=== PATIENT | male | born 1955 | race Caucasian/White ===

== ENCOUNTER → 2016-12-19 | Outpatient (CLI) | payer MEDICAID ==
[~2016-12-19] MED LIST: CARV6.2551 PO; FURO40TA PO; LISI2.5T47 PO; WARF2.5T PO
[2016-12-19 13:30] LABS: Basophils # (auto) 0 uL; Basophils % (auto) 0.6 % (0.0-2.0); CONDITION Y; Eosinophils # (auto) 0.2 uL; Eosinophils % (auto) 1.9 % (0.0-7.0); Hematocrit 31.4 % (41.0-53.0); Hemoglobin 10.6 g/dL (13.5-17.5); Lymphocytes % (auto) 25.4 % (10.0-50.0); Mean Corpuscular Hemoglobin 29.8 pg (28.0-32.0); Mean Corpuscular Hgb Conc. 33.6 g/dL (32.0-36.0); Mean Corpuscular Volume 88.6 fL (80.0-100.0); Mean Platelet Volume 8.4 fL (7.4-10.4); Monocytes # (auto) 0.5 uL; Monocytes % (auto) 6.2 % (0.0-12.0); Neutrophils # (auto) 5.2 uL; Neutrophils % (auto) 65.9 % (37.0-80.0); Platelet Count (auto) 323 10^3/uL (140-450); Red Cell Distribution Width 16.1 % (11.6-16.0); White Blood Cell 7.9 10^3/uL (4.4-10.8)
[2016-12-19 13:51] LABS: Albumin 3.9 g/dL (3.4-5.0); BUN/Creatinine Ratio 27.3; Calcium 8.6 mg/dL (8.5-10.1); Potassium 4.5 mmol/L (3.5-5.1)
[2016-12-19 13:54] LABS: Bilirubin, Total 0.7 mg/dL (0.2-1.0); Total Protein 7.4 g/dL (6.4-8.2)
[2016-12-19 14:03] LABS: INR 1.44 (0.9-1.15)
[2016-12-19 14:12] LABS: Prothrombin Time 15.7 sec (9.37-12.3)
== END | disposition home or self-care (01) ==
LOC: LAB 13:13
PROVIDERS: ATTEND Internal Medicine
DX: I82.90 Acute embolism and thrombosis of unspecified vein (principal)
CPT/HCPCS: 36415; 80053; 85025; 85610

== ENCOUNTER → 2016-12-21 | Outpatient (CLI) | payer MEDICAID ==
[2016-12-21 13:16] LABS: Basophils # (auto) 0.1 uL; Basophils % (auto) 0.8 % (0.0-2.0); CONDITION Y; Eosinophils # (auto) 0.1 uL; Eosinophils % (auto) 1.4 % (0.0-7.0); Hematocrit 30.9 % (41.0-53.0); Hemoglobin 10.5 g/dL (13.5-17.5); Lymphocytes # (auto) 1.5 uL; Lymphocytes % (auto) 21.1 % (10.0-50.0); Mean Corpuscular Hemoglobin 29.8 pg (28.0-32.0); Mean Corpuscular Hgb Conc. 34.1 g/dL (32.0-36.0); Mean Corpuscular Volume 87.4 fL (80.0-100.0); Mean Platelet Volume 7.9 fL (7.4-10.4); Monocytes # (auto) 0.5 uL; Monocytes % (auto) 6.5 % (0.0-12.0); Neutrophils % (auto) 70.2 % (37.0-80.0); Platelet Count (auto) 368 10^3/uL (140-450); Red Cell Distribution Width 16.2 % (11.6-16.0); White Blood Cell 7.1 10^3/uL (4.4-10.8)
[2016-12-21 13:28] LABS: INR 1.24 (0.9-1.15)
[2016-12-21 13:30] LABS: Prothrombin Time 13.6 sec (9.37-12.3)
[2016-12-21 13:44] LABS: BUN/Creatinine Ratio 20.2; Calcium 8.5 mg/dL (8.5-10.1); Potassium 4.5 mmol/L (3.5-5.1)
[2016-12-21 13:47] LABS: Bilirubin, Total 0.6 mg/dL (0.2-1.0); Total Protein 7.2 g/dL (6.4-8.2)
[2016-12-21 14:04] LABS: B-Type Natriuretic Peptide 52.47 pg/mL (0-100)
[2016-12-21 14:24] LABS: Temperature: 22.7 C (20.0-25.0)
== END | disposition home or self-care (01) ==
LOC: LAB 13:01
PROVIDERS: ATTEND Internal Medicine
DX: I82.409 Acute embolism and thrombosis of unspecified deep veins of unspecified lower extremity (principal); D64.9 Anemia, unspecified; I50.9 Heart failure, unspecified
CPT/HCPCS: 36415; 80053; 83880; 85025; 85610

== ENCOUNTER 2017-12-22 11:18 | Inpatient (IN) | payer MEDICAID ==
[~2017-12-22] VITALS: Ht 180.3 cm; Wt 153.1 kg
[2017-12-22 12:19] LABS: Basophils # (auto) 0.1 uL; Eosinophils # (auto) 0.3 uL; Hemoglobin 13.8 g/dL (13.5-17.5); Lymphocytes # (auto) 1.1 uL; Monocytes # (auto) 0.6 uL; Neutrophils # (auto) 5.3 uL; Platelet Count (auto) 231 10^3/uL (140-450)
[2017-12-22 12:20] LABS: Basophils % (auto) 1.2 % (0.0-2.0); Eosinophils % (auto) 4.2 % (0.0-7.0); Hematocrit 42.1 % (41.0-53.0); Lymphocytes % (auto) 14.7 % (10.0-50.0); Mean Corpuscular Hemoglobin 25.3 pg (28.0-32.0); Mean Corpuscular Hgb Conc. 32.8 g/dL (32.0-36.0); Monocytes % (auto) 8.4 % (0.0-12.0); Neutrophils % (auto) 71.5 % (37.0-80.0); Red Blood Cells 5.47 10^6/uL (4.5-5.90); Red Cell Distribution Width 18.1 % (11.8-14.3); White Blood Cell 7.4 10^3/uL (4.4-10.8)
[2017-12-22 12:37] LABS: Alanine Aminotransferase 21 U/L (16-61); Albumin 3.4 g/dL (3.4-5.0); Alkaline Phosphatase 76 U/L (45-117); Anion Gap 9 (5-15); Aspartate Aminotransferase 14 U/L (15-37); BUN/Creatinine Ratio 18.3; Bilirubin, Total 0.5 mg/dL (0.2-1.0); Blood Urea Nitrogen 19 mg/dL (7-18); Calcium 8.7 mg/dL (8.5-10.1); Carbon Dioxide 25 mmol/L (21-32); Chloride 106 mmol/L (98-107); GFR African American 94 mL/min; GFR Non-African American 77 mL/min; Glucose 111 mg/dL (74-106); Potassium 4.3 mmol/L (3.5-5.1); Sodium 140 mmol/L (136-145); Total Protein 7.9 g/dL (6.4-8.2)
[2017-12-22 17:11] LABS: INR 1.02 (0.9-1.15); Partial Thromboplastin Time 27.8 sec (23.78-33.04); Prothrombin Time 10.9 sec (9.27-12.13)
[2017-12-22 17:16] LABS: Magnesium 2.3 mg/dL (1.6-2.6)
[2017-12-22 17:51] LABS: Urine Bacteria NONE SEEN /hpf (None Seen); Urine Blood Negative /uL (Negative); Urine Mucus FEW (None Seen); Urine Specific Gravity 1.021 (1.001-1.035); Urine WBC 9 /hpf (0 - 3)
[2017-12-22] MEDS ORDERED: ENOXAPARIN SOD 150 MG/1 ML SYRINGE SC ONE (18:15)
[2017-12-22] MEDS ORDERED: NITROGLYCERIN 0.4 MG SL TAB SL PRN (19:45)
[2017-12-22] MEDS ORDERED: TEMAZEPAM 15 MG CAP PO PRN (19:45)
[2017-12-22] MEDS ORDERED: ALBUTEROL SULF 2.5 MG/0.5ML(0.5%) NEB SOLN NEB PRN (19:45)
[2017-12-22] MEDS ORDERED: LACTULOSE 20Gm/30ML SOLN PO PRN (19:45)
[2017-12-22] MEDS ORDERED: PROMETHAZINE HCL 25 MG/ML 1ML IV PRN (19:45)
[2017-12-22] MEDS ORDERED: MORPHINE SULF INJ 2 MG/ML SYRINGE 1ML IV PRN ×2 (19:45)
[2017-12-22 20:00] VITALS: BP 144/72
[2017-12-22] MEDS ORDERED: LEVOTHYROXINE SODIUM 25 MCG TAB PO SCH (21:00)
[2017-12-22] MEDS ORDERED: LEVOFLOXACIN 500MG 100 ML IV SCH (21:00)
[2017-12-22 22:00] VITALS: BP 137/86
[2017-12-22] MEDS: CLINDAMYCIN 600MG IV 50 ML IV SCH (23:15)
[2017-12-22] MEDS: ENOXAPARIN SOD 120 MG/0.8 ML SYRINGE SC SCH (23:15)
[2017-12-22] MEDS: LORazepam 0.5 MG TAB PO PRN (23:48)
[2017-12-23] VITALS (7 sets, daily range): BP systolic 127–159; BP diastolic 73–95
[2017-12-23 06:18] LABS: Basophils # (auto) 0.1 uL; Eosinophils # (auto) 0.4 uL; Hemoglobin 12.7 g/dL (13.5-17.5); Lymphocytes # (auto) 1.3 uL; Platelet Count (auto) 202 10^3/uL (140-450); Red Cell Distribution Width 17.8 % (11.8-14.3)
[2017-12-23 06:25] LABS: Basophils % (auto) 0.9 % (0.0-2.0); Eosinophils % (auto) 6.5 % (0.0-7.0); Hematocrit 39.3 % (41.0-53.0); Lymphocytes % (auto) 18.9 % (10.0-50.0); Mean Corpuscular Hgb Conc. 32.2 g/dL (32.0-36.0); Mean Corpuscular Volume 77.4 fL (80.0-100.0); Monocytes # (auto) 0.8 uL; Monocytes % (auto) 11.6 % (0.0-12.0); Neutrophils # (auto) 4.2 uL; Neutrophils % (auto) 62.1 % (37.0-80.0); Nucleated Red Blood Cells % 0.2 %; Red Blood Cells 5.08 10^6/uL (4.5-5.90); White Blood Cell 6.7 10^3/uL (4.4-10.8)
[2017-12-23] MEDS: CLINDAMYCIN 600MG IV 50 ML IV SCH ×3 (06:32→21:50)
[2017-12-23] MEDS: LEVOTHYROXINE SODIUM 25 MCG TAB PO SCH (06:33)
[2017-12-23 06:36] LABS: Albumin 2.9 g/dL (3.4-5.0); BUN/Creatinine Ratio 21.5; Bilirubin, Total 0.6 mg/dL (0.2-1.0); Calcium 8.3 mg/dL (8.5-10.1); Potassium 4.1 mmol/L (3.5-5.1)
[2017-12-23] MEDS: ENOXAPARIN SOD 120 MG/0.8 ML SYRINGE SC SCH ×2 (10:27→21:50)
[2017-12-23] MEDS: LORazepam 0.5 MG TAB PO PRN ×2 (15:13→23:25)
[2017-12-23] MEDS: LEVOFLOXACIN 500MG 100 ML IV SCH (21:25)
[2017-12-23] MEDS: traMADol HCL 50 MG TAB PO PRN (21:50)
[2017-12-24] VITALS (7 sets, daily range): BP systolic 102–150; BP diastolic 70–95
[2017-12-24] MEDS: CLINDAMYCIN 600MG IV 50 ML IV SCH ×3 (06:50→22:01)
[2017-12-24] MEDS: LEVOTHYROXINE SODIUM 25 MCG TAB PO SCH (06:51)
[2017-12-24 08:51] LABS: Free T4 (Free Thyroxine) 0.83 ng/dL (0.89-1.76)
[2017-12-24 08:52] LABS: Free T3 2.94 pg/mL (2.3-4.2)
[2017-12-24] MEDS: ENOXAPARIN SOD 120 MG/0.8 ML SYRINGE SC SCH ×2 (10:40→22:01)
[2017-12-24 12:13] LABS: BUN/Creatinine Ratio 21.5; Calcium 8.5 mg/dL (8.5-10.1); Potassium 4.4 mmol/L (3.5-5.1)
[2017-12-24 12:14] LABS: Basophils # (auto) 0.1 uL; Eosinophils # (auto) 0.5 uL; Hemoglobin 12.8 g/dL (13.5-17.5); Mean Corpuscular Hgb Conc. 32.5 g/dL (32.0-36.0); Monocytes # (auto) 0.7 uL; Neutrophils # (auto) 3.2 uL; Nucleated Red Blood Cells % 0.1 %; Red Blood Cells 5.09 10^6/uL (4.5-5.90); White Blood Cell 5.4 10^3/uL (4.4-10.8)
[2017-12-24 12:17] LABS: Basophils % (auto) 0.9 % (0.0-2.0); Eosinophils % (auto) 8.7 % (0.0-7.0); Hematocrit 39.3 % (41.0-53.0); Lymphocytes % (auto) 18.7 % (10.0-50.0); Mean Corpuscular Hemoglobin 25.2 pg (28.0-32.0); Mean Corpuscular Volume 77.3 fL (80.0-100.0); Monocytes % (auto) 12.6 % (0.0-12.0); Neutrophils % (auto) 59.1 % (37.0-80.0); Platelet Count (auto) 203 10^3/uL (140-450); Red Cell Distribution Width 17.8 % (11.8-14.3)
[2017-12-24] MEDS: LORazepam 0.5 MG TAB PO PRN (13:50)
[2017-12-24] MEDS: LEVOFLOXACIN 500MG 100 ML IV SCH (20:41)
[2017-12-25] MEDS: traMADol HCL 50 MG TAB PO PRN (02:13)
[2017-12-25] MEDS: LORazepam 0.5 MG TAB PO PRN (02:13)
[2017-12-25 05:29] VITALS: BP 121/70
[2017-12-25] MEDS: CLINDAMYCIN 600MG IV 50 ML IV SCH ×3 (06:16→22:24)
[2017-12-25] MEDS: LEVOTHYROXINE SODIUM 25 MCG TAB PO SCH (06:31)
[2017-12-25 07:22] LABS: Basophils # (auto) 0.1 uL; Basophils % (auto) 0.9 % (0.0-2.0); Eosinophils # (auto) 0.5 uL; Eosinophils % (auto) 8.9 % (0.0-7.0); Hematocrit 39.8 % (41.0-53.0); Lymphocytes # (auto) 1.4 uL; Mean Corpuscular Hemoglobin 25.4 pg (28.0-32.0); Mean Corpuscular Hgb Conc. 32.7 g/dL (32.0-36.0); Mean Corpuscular Volume 77.7 fL (80.0-100.0); Monocytes # (auto) 0.7 uL; Neutrophils # (auto) 3.4 uL; Neutrophils % (auto) 55.2 % (37.0-80.0); Nucleated Red Blood Cells % 0.1 %; Platelet Count (auto) 210 10^3/uL (140-450); Red Blood Cells 5.12 10^6/uL (4.5-5.90); Red Cell Distribution Width 17.9 % (11.8-14.3); White Blood Cell 6.1 10^3/uL (4.4-10.8)
[2017-12-25 07:35] LABS: BUN/Creatinine Ratio 22.7; Calcium 8.6 mg/dL (8.5-10.1); Potassium 4.4 mmol/L (3.5-5.1)
[2017-12-25 08:00] VITALS: BP 121/70
[2017-12-25 09:00] VITALS: BP 138/80
[2017-12-25] MEDS: ENOXAPARIN SOD 120 MG/0.8 ML SYRINGE SC SCH ×2 (10:04→22:25)
[2017-12-25 13:00] VITALS: BP 146/92
[2017-12-25 16:53] VITALS: BP 121/60
[2017-12-25 20:00] VITALS: BP 118/53
[2017-12-25] MEDS: LEVOFLOXACIN 500MG 100 ML IV SCH (20:55)
[2017-12-26] VITALS (8 sets, daily range): BP systolic 114–151; BP diastolic 76–87
[2017-12-26] MEDS: CLINDAMYCIN 600MG IV 50 ML IV SCH (05:33)
[2017-12-26] MEDS: ACETAMINOPHEN 500 MG TAB PO PRN (05:35)
[2017-12-26] MEDS: LEVOTHYROXINE SODIUM 25 MCG TAB PO SCH (07:06)
[2017-12-26] MEDS: LORazepam 0.5 MG TAB PO PRN ×2 (07:07→21:13)
[2017-12-26 07:11] LABS: Eosinophils # (auto) 0.5 uL; Hemoglobin 13.3 g/dL (13.5-17.5); Monocytes # (auto) 0.8 uL; Neutrophils # (auto) 3.5 uL; Nucleated Red Blood Cells % 0.2 %; White Blood Cell 6.3 10^3/uL (4.4-10.8)
[2017-12-26 07:16] LABS: Basophils # (auto) 0.1 uL; Eosinophils % (auto) 8.1 % (0.0-7.0); Hematocrit 41.2 % (41.0-53.0); Lymphocytes # (auto) 1.5 uL; Lymphocytes % (auto) 23.3 % (10.0-50.0); Mean Corpuscular Hemoglobin 24.9 pg (28.0-32.0); Mean Corpuscular Hgb Conc. 32.2 g/dL (32.0-36.0); Mean Corpuscular Volume 77.4 fL (80.0-100.0); Monocytes % (auto) 12.5 % (0.0-12.0); Neutrophils % (auto) 55.1 % (37.0-80.0); Platelet Count (auto) 227 10^3/uL (140-450); Red Blood Cells 5.33 10^6/uL (4.5-5.90)
[2017-12-26 07:42] LABS: BUN/Creatinine Ratio 21.7; Bilirubin, Total 0.4 mg/dL (0.2-1.0); Calcium 8.6 mg/dL (8.5-10.1); Potassium 4.4 mmol/L (3.5-5.1); Total Protein 7.3 g/dL (6.4-8.2)
[2017-12-26] MEDS: ENOXAPARIN SOD 120 MG/0.8 ML SYRINGE SC SCH ×2 (08:33→21:12)
[2017-12-26] MEDS ORDERED: WARFARIN SODIUM 2.5 MG TAB PO ONE (17:00)
[2017-12-27 04:56] VITALS: BP 143/83
[2017-12-27] MEDS: LEVOTHYROXINE SODIUM 25 MCG TAB PO SCH (06:27)
[2017-12-27] MEDS: LORazepam 0.5 MG TAB PO PRN ×2 (06:28→22:53)
[2017-12-27 09:00] VITALS: BP 148/84
[2017-12-27] MEDS: ENOXAPARIN SOD 120 MG/0.8 ML SYRINGE SC SCH ×2 (09:16→22:53)
[2017-12-27 11:09] LABS: Partial Thromboplastin Time 29.6 sec (23.78-33.04); Prothrombin Time 10.7 sec (9.27-12.13)
[2017-12-27 12:42] VITALS: BP 120/75
[2017-12-27] MEDS ORDERED: WARFARIN SODIUM 2.5 MG TAB PO ONE (17:00)
[2017-12-27 17:22] VITALS: BP 137/83
[2017-12-27 20:00] VITALS: BP 109/59
[2017-12-27 22:00] VITALS: BP 109/59
[2017-12-28] MEDS: ACETAMINOPHEN 500 MG TAB PO PRN (03:41)
[2017-12-28] MEDS: LEVOTHYROXINE SODIUM 25 MCG TAB PO SCH (06:19)
[2017-12-28] MEDS: LORazepam 0.5 MG TAB PO PRN ×2 (06:37→18:53)
[2017-12-28 06:40] LABS: Basophils # (auto) 0.1 uL; Eosinophils # (auto) 0.5 uL; Eosinophils % (auto) 7.9 % (0.0-7.0); Hemoglobin 13.8 g/dL (13.5-17.5); Monocytes # (auto) 0.8 uL; Neutrophils # (auto) 3.5 uL; White Blood Cell 6.2 10^3/uL (4.4-10.8)
[2017-12-28 06:42] LABS: Basophils % (auto) 1.1 % (0.0-2.0); Hematocrit 43.2 % (41.0-53.0); Lymphocytes # (auto) 1.4 uL; Lymphocytes % (auto) 22.7 % (10.0-50.0); Mean Corpuscular Hemoglobin 24.7 pg (28.0-32.0); Mean Corpuscular Hgb Conc. 31.9 g/dL (32.0-36.0); Mean Corpuscular Volume 77.3 fL (80.0-100.0); Monocytes % (auto) 12.4 % (0.0-12.0); Neutrophils % (auto) 55.9 % (37.0-80.0); Nucleated Red Blood Cells % 0.1 %; Platelet Count (auto) 221 10^3/uL (140-450); Red Blood Cells 5.58 10^6/uL (4.5-5.90); Red Cell Distribution Width 18.2 % (11.8-14.3)
[2017-12-28 06:49] LABS: INR 1.14 (0.9-1.15); Partial Thromboplastin Time 33.8 sec (23.78-33.04); Prothrombin Time 12.1 sec (9.27-12.13)
[2017-12-28 09:00] VITALS: BP 149/96
[2017-12-28] MEDS: ENOXAPARIN SOD 120 MG/0.8 ML SYRINGE SC SCH ×2 (10:58→22:18)
[2017-12-28 13:00] VITALS: BP 138/99
[2017-12-28 17:00] VITALS: BP 140/94
[2017-12-28] MEDS ORDERED: WARFARIN SODIUM 2.5 MG TAB PO ONE (17:00)
[2017-12-28 22:00] VITALS: BP 112/55
[2017-12-29] VITALS (7 sets, daily range): BP systolic 107–157; BP diastolic 62–104
[2017-12-29] MEDS: LEVOTHYROXINE SODIUM 25 MCG TAB PO SCH ×2 (06:51→07:03)
[2017-12-29] MEDS: ENOXAPARIN SOD 120 MG/0.8 ML SYRINGE SC SCH ×2 (09:38→21:08)
[2017-12-29 10:12] LABS: INR 1.76 (0.9-1.15); Partial Thromboplastin Time 35.9 sec (23.78-33.04); Prothrombin Time 18.2 sec (9.27-12.13)
[2017-12-29] MEDS: CARVEDILOL 3.125 MG TAB PO SCH ×2 (14:34→21:10)
[2017-12-29] MEDS: ACETAMINOPHEN 500 MG TAB PO PRN (17:00)
[2017-12-29] MEDS ORDERED: WARFARIN SODIUM 2.5 MG TAB PO ONE (17:00)
[2017-12-29] MEDS: LORazepam 0.5 MG TAB PO PRN (21:10)
[2017-12-30] MEDS: traMADol HCL 50 MG TAB PO PRN (01:44)
[2017-12-30 05:00] VITALS: BP 126/77
[2017-12-30 06:16] LABS: Basophils # (auto) 0.1 uL; Eosinophils # (auto) 0.1 uL; Eosinophils % (auto) 1.2 % (0.0-7.0); Lymphocytes # (auto) 0.7 uL; Mean Corpuscular Hemoglobin 24.5 pg (28.0-32.0); Monocytes # (auto) 0.6 uL; Monocytes % (auto) 9.9 % (0.0-12.0); Nucleated Red Blood Cells % 0.1 %
[2017-12-30 06:18] LABS: Basophils % (auto) 1.1 % (0.0-2.0); Hematocrit 42.6 % (41.0-53.0); Hemoglobin 13.6 g/dL (13.5-17.5); Lymphocytes % (auto) 12.8 % (10.0-50.0); Mean Corpuscular Hgb Conc. 31.8 g/dL (32.0-36.0); Mean Corpuscular Volume 77.1 fL (80.0-100.0); Neutrophils # (auto) 4.2 uL; Platelet Count (auto) 205 10^3/uL (140-450); Red Blood Cells 5.53 10^6/uL (4.5-5.90); Red Cell Distribution Width 17.5 % (11.8-14.3); White Blood Cell 5.6 10^3/uL (4.4-10.8)
[2017-12-30] MEDS: LEVOTHYROXINE SODIUM 25 MCG TAB PO SCH (06:37)
[2017-12-30 06:51] LABS: INR 2.25 (0.9-1.15); Partial Thromboplastin Time 42.2 sec (23.78-33.04)
[2017-12-30 08:00] VITALS: BP 123/85
[2017-12-30] MEDS ORDERED: LORazepam 0.5 MG TAB PO PRN (08:30)
[2017-12-30] MEDS ORDERED: TEMAZEPAM 15 MG CAP PO PRN (08:30)
[2017-12-30] MEDS ORDERED: traMADol HCL 50 MG TAB PO PRN (08:30)
[2017-12-30 09:00] VITALS: BP 123/85
[2017-12-30] MEDS: CARVEDILOL 3.125 MG TAB PO SCH ×2 (09:23→22:00)
[2017-12-30] MEDS ORDERED: ASPirin 81 mg TAB PO ONE (10:15)
[2017-12-30 13:00] VITALS: BP 148/90
[2017-12-30 17:00] VITALS: BP 142/93
[2017-12-30] MEDS ORDERED: WARFARIN SODIUM 2.5 MG TAB PO ONE (17:00)
[2017-12-30 21:47] VITALS: BP 133/74
[2017-12-31 05:00] VITALS: BP_SYST 104; BP_SYST 157; BP_DIAS 77; BP_DIAS 81
[2017-12-31] MEDS: LEVOTHYROXINE SODIUM 25 MCG TAB PO SCH (06:10)
[2017-12-31 07:13] LABS: White Blood Cell 4.2 10^3/uL (4.4-10.8)
[2017-12-31 07:15] LABS: Hematocrit 41.6 % (41.0-53.0); Hemoglobin 13.2 g/dL (13.5-17.5); Mean Corpuscular Hemoglobin 24.6 pg (28.0-32.0); Mean Corpuscular Hgb Conc. 31.8 g/dL (32.0-36.0); Mean Corpuscular Volume 77.4 fL (80.0-100.0); Platelet Count (auto) 186 10^3/uL (140-450); Red Blood Cells 5.38 10^6/uL (4.5-5.90); Red Cell Distribution Width 17.9 % (11.8-14.3)
[2017-12-31 07:20] LABS: INR 2.39 (0.9-1.15); Partial Thromboplastin Time 41.3 sec (23.78-33.04); Prothrombin Time 24.3 sec (9.27-12.13)
[2017-12-31 07:30] LABS: BUN/Creatinine Ratio 23.7; Bilirubin, Total 0.2 mg/dL (0.2-1.0); Calcium 8.2 mg/dL (8.5-10.1); Magnesium 2.7 mg/dL (1.6-2.6); Potassium 4.5 mmol/L (3.5-5.1); Total Protein 7.1 g/dL (6.4-8.2)
[2017-12-31 07:37] LABS: Basophils % (manual) 0 (0.0-2.0); Blast Cells 0; Metamyelocytes % 0; Myelocytes % 0; Promyelocytes % 0; Reactive Lymphocytes 0
[2017-12-31 07:40] LABS: Band Neutrophils % (manual) 3; Eosinophils % (manual) 7 (0-7); Lymphocytes % (manual) 25 (10.0-50.0); Monocytes % (manual) 15 (0-12)
[2017-12-31 08:28] VITALS: BP_SYST 130; BP_SYST 169; BP_DIAS 80; BP_DIAS 86
[2017-12-31] MEDS ORDERED: ASPirin 81 mg TAB PO SCH (10:00)
[2017-12-31] MEDS: CARVEDILOL 3.125 MG TAB PO SCH (10:21)
[2017-12-31] MEDS ORDERED: LEV50T PO (10:36)
[2017-12-31] MEDS ORDERED: CAR3125T PO (10:36)
[2017-12-31] MEDS ORDERED: WARF2.5T PO (10:36)
[2017-12-31] MEDS ORDERED: FURO40TA PO (10:41)
[2017-12-31] MEDS ORDERED: LISI2.5T47 PO (10:41)
[2017-12-31] MEDS ORDERED: ATOR10TA PO (10:46)
[2017-12-31] MEDS ORDERED: DOXE10CA PO (13:15)
[2017-12-31 13:41] VITALS: BP 116/69
[2017-12-31] MEDS ORDERED: WARFARIN SODIUM 2.5 MG TAB PO ONE (17:00)
== END 2017-12-31 15:30 | disposition home or self-care (01) | DRG 299 ==
LOC: ER 11:18 → TELE 11:19 → TELE-EAST 21:34 → EAST 12-28 01:43
PROVIDERS: ADMIT Internal Medicine; ATTEND Internal Medicine
DX: I82.412 Acute embolism and thrombosis of left femoral vein (principal); J18.9 Pneumonia, unspecified organism; L03.119 Cellulitis of unspecified part of limb; I50.42 Chronic combined systolic (congestive) and diastolic (congestive) heart failure; J98.11 Atelectasis; N39.0 Urinary tract infection, site not specified; Z68.42 Body mass index [BMI] 45.0-49.9, adult; E03.9 Hypothyroidism, unspecified; E66.01 Morbid (severe) obesity due to excess calories; E78.5 Hyperlipidemia, unspecified; I11.0 Hypertensive heart disease with heart failure; I25.10 Atherosclerotic heart disease of native coronary artery without angina pectoris; I25.2 Old myocardial infarction; Z83.3 Family history of diabetes mellitus; Z86.73 Personal history of transient ischemic attack (TIA), and cerebral infarction without residual deficits; Z91.19 Patient's noncompliance with other medical treatment and regimen
CPT/HCPCS: 36415; 71045; 71046; 80048; 80053; 80061; 81001; 81241; 83735; 83880; 84439; 84443; 84481; 84484; 85007; 85025; 85027; 85610; 85613; 85670; 85705; 85730; 85732; 93005; 93970; 94761; 96372; J1956; J3490

== ENCOUNTER → 2018-02-11 | Outpatient (CLI) | payer MEDICAID ==
[~2018-02-11] MED LIST changes: +ATOR10TA PO; +CAR3125T PO; -CARV6.2551 PO; +DOXE10CA PO; +LEV50T PO
[2018-02-11 14:23] LABS: Free T4 (Free Thyroxine) 0.95 ng/dL (0.89-1.76); Prostate Specific Antigen 0.37 ng/mL (0.0-4.0)
[2018-02-11 14:45] LABS: Hepatitis B Surface Antibody Negative
[2018-02-11 15:38] LABS: Hepatitis A Ab IgM Negative; Hepatitis B Core IgM Negative; Hepatitis B Core Total AB Negative
[2018-02-11 15:39] LABS: Hepatitis B Surface Antigen Negative (Negative); Hepatitis C Antibody Negative (Negative)
== END | disposition home or self-care (01) ==
LOC: LAB 12:46
PROVIDERS: ATTEND Internal Medicine
DX: I11.0 Hypertensive heart disease with heart failure (principal); I50.9 Heart failure, unspecified; L30.9 Dermatitis, unspecified; N40.0 Benign prostatic hyperplasia without lower urinary tract symptoms; I82.409 Acute embolism and thrombosis of unspecified deep veins of unspecified lower extremity; E03.9 Hypothyroidism, unspecified; Z79.899 Other long term (current) drug therapy
CPT/HCPCS: 36415; 84153; 84439; 84443; 86225; 86235; 86704; 86705; 86706; 86709; 86803; 87340

== ENCOUNTER 2018-08-22 15:15 | Emergency (ER) | payer OTHER, MEDICAID ==
[~2018-08-22] VITALS: Ht 180.3 cm; Wt 131.5 kg
[2018-08-22 15:24] VITALS: BP 121/80
[2018-08-22 16:15] LABS: Basophils # (auto) 0.1 uL; Eosinophils # (auto) 0.2 uL; Lymphocytes # (auto) 1.5 uL; Monocytes # (auto) 0.9 uL; Platelet Count (auto) 239 10^3/uL (140-450); White Blood Cell 7.4 10^3/uL (4.4-10.8)
[2018-08-22 16:19] LABS: Hematocrit 50.5 % (41.0-53.0); Hemoglobin 16.4 g/dL (13.5-17.5); Lymphocytes % (auto) 19.7 % (10.0-50.0); Mean Corpuscular Hemoglobin 27.1 pg (28.0-32.0); Mean Corpuscular Hgb Conc. 32.6 g/dL (32.0-36.0); Mean Corpuscular Volume 83.3 fL (80.0-100.0); Monocytes % (auto) 11.9 % (0.0-12.0); Neutrophils # (auto) 4.7 uL; Neutrophils % (auto) 64.4 % (37.0-80.0); Nucleated Red Blood Cells % 0.2 %; Red Blood Cells 6.06 10^6/uL (4.5-5.90); Red Cell Distribution Width 16.1 % (11.8-14.3)
[2018-08-22 16:20] LABS: Albumin 3.6 g/dL (3.4-5.0); Calcium 8.8 mg/dL (8.5-10.1); Potassium 4.8 mmol/L (3.5-5.1)
[2018-08-22 16:23] LABS: BUN/Creatinine Ratio 28.8
[2018-08-22 16:26] LABS: Bilirubin, Total 0.5 mg/dL (0.2-1.0); Total Protein 8.4 g/dL (6.4-8.2)
== END 2018-08-22 20:27 | disposition left against medical advice (07) ==
LOC: ER 15:15
DX: R22.31 Localized swelling, mass and lump, right upper limb (principal); Z53.21 Procedure and treatment not carried out due to patient leaving prior to being seen by health care provider
CPT/HCPCS: 36415; 80053; 85025

== ENCOUNTER → 2019-12-24 | Outpatient (CLI) | payer MEDICARE ==
[~2019-12-24] MED LIST changes: +FURO1TAB31 PO; -FURO40TA PO
[2019-12-24 09:51] LABS: Basophils # (auto) 0.1 10 ^3/uL (0-0.2); Basophils % (auto) 0.9 % (0.0-2.0); Eosinophils # (auto) 0.2 10 ^3/uL (0-0.8); Eosinophils % (auto) 3.3 % (0.0-7.0); Hematocrit 50.8 % (41.0-53.0); Hemoglobin 16.6 g/dL (13.5-17.5); Lymphocytes # (auto) 1.3 10 ^3/uL (0.4-5.4); Lymphocytes % (auto) 20.5 % (10.0-50.0); Mean Corpuscular Hemoglobin 29.1 pg (28.0-32.0); Mean Corpuscular Hgb Conc. 32.7 g/dL (32.0-36.0); Mean Corpuscular Volume 88.9 fL (80.0-100.0); Monocytes # (auto) 0.7 10 ^3/uL (0-1.3); Neutrophils # (auto) 4.3 10 ^3/uL (1.6-8.6); Neutrophils % (auto) 65.3 % (37.0-80.0); Nucleated Red Blood Cells % 0.1 %; Platelet Count (auto) 182 10^3/uL (140-450); Red Blood Cells 5.72 10^6/uL (4.5-5.90); Red Cell Distribution Width 15.1 % (11.8-14.3); White Blood Cell 6.5 10^3/uL (4.4-10.8)
[2019-12-24 10:07] LABS: Urine Bacteria FEW /hpf (None Seen); Urine Blood Negative /uL (Negative); Urine Mucus FEW (None Seen); Urine Specific Gravity 1.027 (1.001-1.035); Urine WBC 5 /hpf (0 - 3)
[2019-12-24 10:14] LABS: Albumin 3.8 g/dL (3.4-5.0); Calcium 9.4 mg/dL (8.5-10.1); Potassium 4.6 mmol/L (3.5-5.1)
[2019-12-24 10:18] LABS: BUN/Creatinine Ratio 23.6; Bilirubin, Total 0.9 mg/dL (0.2-1.0); Total Protein 8.1 g/dL (6.4-8.2)
[2019-12-24 10:22] LABS: Free T4 (Free Thyroxine) 1.08 ng/dL (0.89-1.76)
[2019-12-24 10:23] LABS: Folate (Folic Acid) 8.99 ng/mL (5.38-24)
== END | disposition home or self-care (01) ==
LOC: LAB 09:16
PROVIDERS: ATTEND Internal Medicine
DX: E11.22 Type 2 diabetes mellitus with diabetic chronic kidney disease (principal); E03.9 Hypothyroidism, unspecified; N18.9 Chronic kidney disease, unspecified
CPT/HCPCS: 36415; 80053; 80061; 81001; 82043; 82607; 82746; 83036; 84439; 84443; 85025

== ENCOUNTER → 2020-02-26 | Outpatient (CLI) | payer MEDICARE | END | disposition home or self-care (01) | LOC: XYW 09:44 | PROVIDERS: ATTEND Internal Medicine | DX: I08.3 Combined rheumatic disorders of mitral, aortic and tricuspid valves (principal); I50.22 Chronic systolic (congestive) heart failure; I42.9 Cardiomyopathy, unspecified; I73.9 Peripheral vascular disease, unspecified | CPT/HCPCS: 93306 ==

== ENCOUNTER → 2020-03-16 | Outpatient (CLI) | payer MEDICARE, MEDICAID ==
[~2020-03-16] VITALS: Ht 180.3 cm; Wt 140.6 kg
[~2020-03-16] MED LIST changes: +ADENOSINE 118 MG in GIVE UN-DILUTED 0 ML IV STA
[2020-03-16 10:01] VITALS: BP 154/89
== END | disposition home or self-care (01) ==
LOC: XY 08:27
PROVIDERS: ATTEND Internal Medicine
DX: R07.9 Chest pain, unspecified (principal); I73.9 Peripheral vascular disease, unspecified; R06.02 Shortness of breath; I87.2 Venous insufficiency (chronic) (peripheral)
CPT/HCPCS: 78452; 93017; A9500; J0153

== ENCOUNTER 2020-07-18 17:16 | Emergency (ER) | payer MEDICARE ==
[~2020-07-18] VITALS: Ht 180.3 cm; Wt 136.1 kg
[~2020-07-18 17:16] MED LIST changes: -ADENOSINE 118 MG in GIVE UN-DILUTED 0 ML IV STA
[2020-07-18 17:45] LABS: Basophils # (auto) 0 10 ^3/uL (0-0.2); Basophils % (auto) 0.7 % (0.0-2.0); Eosinophils # (auto) 0.3 10 ^3/uL (0-0.8); Eosinophils % (auto) 4.9 % (0.0-7.0); Hematocrit 43.9 % (41.0-53.0); Hemoglobin 14.9 g/dL (13.5-17.5); Lymphocytes # (auto) 1.3 10 ^3/uL (0.4-5.4); Lymphocytes % (auto) 19.1 % (10.0-50.0); Mean Corpuscular Hemoglobin 30.7 pg (28.0-32.0); Mean Corpuscular Hgb Conc. 33.9 g/dL (32.0-36.0); Mean Corpuscular Volume 90.4 fL (80.0-100.0); Monocytes # (auto) 0.6 10 ^3/uL (0-1.3); Monocytes % (auto) 8.7 % (0.0-12.0); Neutrophils # (auto) 4.5 10 ^3/uL (1.6-8.6); Neutrophils % (auto) 66.6 % (37.0-80.0); Nucleated Red Blood Cells % 0.3 %; Red Blood Cells 4.86 10^6/uL (4.5-5.90); Red Cell Distribution Width 14.8 % (11.8-14.3); White Blood Cell 6.7 10^3/uL (4.4-10.8)
[2020-07-18 18:07] LABS: Albumin 3.5 g/dL (3.4-5.0); BUN/Creatinine Ratio 24.5; Calcium 8.9 mg/dL (8.5-10.1); Potassium 4.6 mmol/L (3.5-5.1)
[2020-07-18 18:11] LABS: Bilirubin, Total 0.6 mg/dL (0.2-1.0); Total Protein 7.3 g/dL (6.4-8.2)
[2020-07-18 19:00] LABS: INR 1.9 (0.9-1.15)
[2020-07-18] MEDS ORDERED: SULFAMETHOX W/TRIMETH(800/160MG) DS TAB PO ONE (20:15)
[2020-07-18 20:46] VITALS: BP 155/89
== END 2020-07-18 20:21 | disposition home or self-care (01) ==
LOC: ER 17:16
DX: L03.115 Cellulitis of right lower limb (principal); E11.8 Type 2 diabetes mellitus with unspecified complications; I11.0 Hypertensive heart disease with heart failure; I50.9 Heart failure, unspecified; Z86.73 Personal history of transient ischemic attack (TIA), and cerebral infarction without residual deficits
CPT/HCPCS: 36415; 80053; 80320; 83605; 83880; 85025; 85610; 85730; 87040; 93971

== ENCOUNTER 2021-04-04 23:41 | Inpatient (IN) | payer MEDICARE ==
[~2021-04-04] VITALS: Ht 177.8 cm; Wt 164.5 kg
[2021-04-05 00:35] LABS: Basophils # (auto) 0.1 10 ^3/uL (0-0.2); Basophils % (auto) 1.3 % (0.0-2.0); Eosinophils # (auto) 0.1 10 ^3/uL (0-0.8); Eosinophils % (auto) 1.8 % (0.0-7.0); Hematocrit 44.2 % (41.0-53.0); Hemoglobin 14.3 g/dL (13.5-17.5); Lymphocytes # (auto) 1.1 10 ^3/uL (0.4-5.4); Lymphocytes % (auto) 14.2 % (10.0-50.0); Mean Corpuscular Hemoglobin 29.2 pg (28.0-32.0); Mean Corpuscular Hgb Conc. 32.5 g/dL (32.0-36.0); Mean Corpuscular Volume 89.8 fL (80.0-100.0); Monocytes # (auto) 0.7 10 ^3/uL (0-1.3); Monocytes % (auto) 9.5 % (0.0-12.0); Neutrophils # (auto) 5.5 10 ^3/uL (1.6-8.6); Neutrophils % (auto) 73.2 % (37.0-80.0); Nucleated Red Blood Cells % 0.1 %; Red Blood Cells 4.92 10^6/uL (4.5-5.90); Red Cell Distribution Width 14.6 % (11.8-14.3); White Blood Cell 7.5 10^3/uL (4.4-10.8)
[2021-04-05 00:54] LABS: Albumin 2.8 g/dL (3.4-5.0); BUN/Creatinine Ratio 35.1; Calcium 8.2 mg/dL (8.5-10.1); Magnesium 1.6 mg/dL (1.6-2.6); Potassium 4.5 mmol/L (3.5-5.1)
[2021-04-05 00:59] LABS: Bilirubin, Total 0.8 mg/dL (0.2-1.0); Total Protein 6.3 g/dL (6.4-8.2)
[2021-04-05] MEDS ORDERED: fentaNYL CITRATE 100 MCG/2 ML VL IV ONE (02:15)
[2021-04-05 03:22] LABS: Urine Bacteria FEW /hpf (None Seen); Urine Blood TRACE /uL (Negative); Urine Specific Gravity 1.025 (1.001-1.035); Urine WBC 1 /hpf (0 - 3)
[2021-04-05] MEDS ORDERED: IOHEXOL 300 MG/ML 100ML BOTTLE IJ ONE (03:58)
[2021-04-05] MEDS ORDERED: SODIUM CHLORIDE 0.9% 1,000 ML IV ONE (08:45)
[2021-04-05] MEDS ORDERED: MORPHINE SULFATE INJECTION 2 MG/ML SYRG IV PRN (09:00)
[2021-04-05] MEDS ORDERED: ACETAMINOPHEN 500 MG TAB PO PRN (09:00)
[2021-04-05] MEDS ORDERED: NITROGLYCERIN 0.4 MG SL TAB SL PRN (09:00)
[2021-04-05] MEDS ORDERED: DEXTROSE (50%) 50ML SYRG IV PRN (09:00)
[2021-04-05] MEDS ORDERED: FUROSEMIDE 20 MG/2 ML VIAL IV ONE (09:00)
[2021-04-05] MEDS ORDERED: ONDANSETRON HCL 4 MG/2 ML VIAL IV PRN (09:00)
[2021-04-05 09:17] LABS: Amylase 49 U/L (25-115); Lipase 404 U/L (73-393)
[2021-04-05 09:35] LABS: Alcohol, Urine < 3.0 mg/dL (0-10); Amphetamine Screen, Urine NEGATIVE (NEGATIVE); Barbiturate Scree,Urine NEGATIVE (NEGATIVE); Benzodiazephine Screen, Urine NEGATIVE (NEGATIVE); Cannabinoid Screen, Urine NEGATIVE (NEGATIVE); Cocaine Screen, Urine NEGATIVE (NEGATIVE); Opiate Scree,Urine NEGATIVE (NEGATIVE); Phencyclidine Screen, Urine NEGATIVE (NEGATIVE)
[2021-04-05] MEDS: CARVEDILOL 3.125 MG TAB PO SCH ×2 (09:59→23:49)
[2021-04-05] MEDS ORDERED: PATIENTS OWN MEDICATION (Atorvastatin Calcium (Lipitor) 1 TAB) PO SCH (10:00)
[2021-04-05] MEDS ORDERED: LISINOPRIL PO SCH (10:00)
[2021-04-05] MEDS: LEVOTHYROXINE SODIUM 50 MCG TAB PO SCH (10:02)
[2021-04-05] MEDS: LISINOPRIL 5 MG TAB PO SCH (10:03)
[2021-04-05 10:26] LABS: INR 3.55 (0.9-1.15); Partial Thromboplastin Time 41.5 sec (23.6-33.0)
[2021-04-05] MEDS: MORPHINE SULFATE INJECTION 2 MG/ML SYRG IV PRN (11:43)
[2021-04-05] MEDS: ACCU-CHEK COMFORT CURVE STRIP VI SCH ×3 (11:43→21:24)
[2021-04-05] MEDS: InsuLIN REG 1unit/0.01ml Soln (100units/ml) SC SCH ×3 (11:48→21:27)
[2021-04-05] MEDS ORDERED: PANTOPRAZOLE 40 MG TAB PO ONE (12:30)
[2021-04-05] MEDS: LORazepam 2MG/ML-1ML VIAL IV PRN ×2 (14:06→23:49)
[2021-04-05] MEDS ORDERED: POLYETHYLENE GLYCOL 17 GM PWDR PO ONE (17:00)
[2021-04-05 21:55] VITALS: BP 109/58
[2021-04-05] MEDS ORDERED: ATORVASTATIN 20 MG TAB PO SCH (22:00)
[2021-04-05 22:25] VITALS: BP 109/58
[2021-04-06] MEDS ORDERED: BUSP5TAB51 PO (03:43)
[2021-04-06] MEDS ORDERED: SERT50TA19 PO (03:43)
[2021-04-06] MEDS ORDERED: METF-371 PO (03:43)
[2021-04-06] MEDS ORDERED: HYDR50TA69 PO (03:43)
[2021-04-06] MEDS ORDERED: ALBUAER3 IN (03:43)
[2021-04-06] MEDS ORDERED: METO25TA93 PO (03:43)
[2021-04-06] MEDS: MORPHINE SULFATE INJECTION 2 MG/ML SYRG IV PRN (03:44)
[2021-04-06 05:00] VITALS: BP 138/70
[2021-04-06 06:36] LABS: Basophils # (auto) 0 10 ^3/uL (0-0.2); Basophils % (auto) 0.7 % (0.0-2.0); Eosinophils # (auto) 0.2 10 ^3/uL (0-0.8); Hematocrit 42.8 % (41.0-53.0); Hemoglobin 14.3 g/dL (13.5-17.5); Lymphocytes # (auto) 1.2 10 ^3/uL (0.4-5.4); Lymphocytes % (auto) 17.3 % (10.0-50.0); Mean Corpuscular Hemoglobin 30.1 pg (28.0-32.0); Mean Corpuscular Hgb Conc. 33.5 g/dL (32.0-36.0); Mean Corpuscular Volume 89.9 fL (80.0-100.0); Monocytes # (auto) 0.7 10 ^3/uL (0-1.3); Monocytes % (auto) 10.3 % (0.0-12.0); Neutrophils # (auto) 4.7 10 ^3/uL (1.6-8.6); Neutrophils % (auto) 68.7 % (37.0-80.0); Nucleated Red Blood Cells % 0.1 %; Red Blood Cells 4.76 10^6/uL (4.5-5.90); Red Cell Distribution Width 14.6 % (11.8-14.3); White Blood Cell 6.8 10^3/uL (4.4-10.8)
[2021-04-06 06:43] LABS: Albumin 2.5 g/dL (3.4-5.0); BUN/Creatinine Ratio 42.5; Calcium 8.1 mg/dL (8.5-10.1); INR 3.78 (0.9-1.15); Partial Thromboplastin Time 41.6 sec (23.6-33.0); Potassium 5.1 mmol/L (3.5-5.1)
[2021-04-06] MEDS: ACCU-CHEK COMFORT CURVE STRIP VI SCH ×4 (06:44→21:27)
[2021-04-06 06:46] LABS: Bilirubin, Total 0.7 mg/dL (0.2-1.0); Total Protein 5.6 g/dL (6.4-8.2)
[2021-04-06] MEDS: InsuLIN REG 1unit/0.01ml Soln (100units/ml) SC SCH ×4 (06:54→21:27)
[2021-04-06] MEDS: POLYETHYLENE GLYCOL 17 GM PWDR PO SCH (08:48)
[2021-04-06] MEDS: CARVEDILOL 3.125 MG TAB PO SCH ×2 (08:48→22:00)
[2021-04-06] MEDS: LEVOTHYROXINE SODIUM 50 MCG TAB PO SCH (08:48)
[2021-04-06] MEDS: LISINOPRIL 5 MG TAB PO SCH (08:49)
[2021-04-06 09:00] VITALS: BP 102/56
[2021-04-06] MEDS ORDERED: LEVOTHYROXINE SODIUM 100 MCG/5 ML INJ IV ONE (10:15)
[2021-04-06] MEDS ORDERED: ATOR-47 PO (11:09)
[2021-04-06] MEDS ORDERED: FURO20TA3 PO (11:19)
[2021-04-06] MEDS ORDERED: LISI-716 PO (11:19)
[2021-04-06] MEDS ORDERED: LEVO100T8 PO (11:19)
[2021-04-06] MEDS: LORazepam 2MG/ML-1ML VIAL IV PRN (12:15)
[2021-04-06 13:00] VITALS: BP 110/68
[2021-04-06] MEDS ORDERED: BISACODYL 5 MG EC TAB PO PRN (15:45)
[2021-04-06] MEDS ORDERED: LACTULOSE 20Gm/30ML SOLN PO PRN (15:45)
[2021-04-06 16:28] LABS: Urine Bacteria FEW /hpf (None Seen); Urine Blood 2+ /uL (Negative); Urine Mucus FEW (None Seen); Urine Specific Gravity 1.026 (1.001-1.035); Urine WBC 18 /hpf (0 - 3)
[2021-04-06 17:11] LABS: Folate (Folic Acid) 8.41 ng/mL (5.38-24)
[2021-04-06] MEDS ORDERED: cefTRIAXone 1GM/50ML D5W 50 ML IV ONE (17:30)
[2021-04-06 22:01] VITALS: BP 91/73
[2021-04-07 05:00] VITALS: BP 113/60
[2021-04-07 06:01] LABS: Basophils # (auto) 0.1 10 ^3/uL (0-0.2); Eosinophils # (auto) 0.2 10 ^3/uL (0-0.8); Eosinophils % (auto) 2.8 % (0.0-7.0); Hematocrit 43.3 % (41.0-53.0); Hemoglobin 14.3 g/dL (13.5-17.5); Lymphocytes # (auto) 1.1 10 ^3/uL (0.4-5.4); Lymphocytes % (auto) 16.8 % (10.0-50.0); Mean Corpuscular Hemoglobin 29.6 pg (28.0-32.0); Mean Corpuscular Volume 89.8 fL (80.0-100.0); Monocytes # (auto) 0.6 10 ^3/uL (0-1.3); Monocytes % (auto) 9.4 % (0.0-12.0); Neutrophils # (auto) 4.4 10 ^3/uL (1.6-8.6); Red Blood Cells 4.83 10^6/uL (4.5-5.90); Red Cell Distribution Width 14.5 % (11.8-14.3); White Blood Cell 6.2 10^3/uL (4.4-10.8)
[2021-04-07 06:11] LABS: INR 3.37 (0.9-1.15)
[2021-04-07 06:28] LABS: Albumin 2.5 g/dL (3.4-5.0); BUN/Creatinine Ratio 39.1; Calcium 8.3 mg/dL (8.5-10.1); Potassium 4.9 mmol/L (3.5-5.1)
[2021-04-07 06:30] LABS: Bilirubin, Total 0.7 mg/dL (0.2-1.0); Total Protein 5.6 g/dL (6.4-8.2)
[2021-04-07] MEDS: ACCU-CHEK COMFORT CURVE STRIP VI SCH ×4 (06:32→22:43)
[2021-04-07 06:33] LABS: Cholesterol 106 mg/dL (< 200); HDL Cholesterol 35 mg/dL (40-59); LDL Cholesterol 61 mg/dL (< 100); Triglycerides 98 mg/dL (< 150)
[2021-04-07] MEDS: InsuLIN REG 1unit/0.01ml Soln (100units/ml) SC SCH ×4 (06:42→22:00)
[2021-04-07 09:00] VITALS: BP 121/75
[2021-04-07] MEDS: LEVOTHYROXINE SODIUM 100 MCG/5 ML INJ IV SCH (09:52)
[2021-04-07] MEDS: MORPHINE SULFATE INJECTION 2 MG/ML SYRG IV PRN (09:53)
[2021-04-07] MEDS: CARVEDILOL 3.125 MG TAB PO SCH ×2 (09:58→22:43)
[2021-04-07] MEDS: POLYETHYLENE GLYCOL 17 GM PWDR PO SCH (10:33)
[2021-04-07 12:13] LABS: INR 3.07 (0.9-1.15)
[2021-04-07 13:00] VITALS: BP 102/64
[2021-04-07] MEDS: LORazepam 2MG/ML-1ML VIAL IV PRN ×2 (15:34→23:31)
[2021-04-07] MEDS ORDERED: FUROSEMIDE 40 MG/4 ML VIAL IV ONE (16:15)
[2021-04-07 17:00] VITALS: BP 122/83
[2021-04-07] MEDS: HYDROcodone-ACET 5/325MG TAB PO PRN (20:24)
[2021-04-07] MEDS: cefTRIAXone 1GM/50ML D5W 50 ML IV SCH (20:30)
[2021-04-07] MEDS: SACUBITRIL-VALSARTAN 24mg/26mg TAB PO SCH (22:42)
[2021-04-08] MEDS: HALOPERIDOL LACTATE 5 MG/ML INJ VIAL IM PRN (00:31)
[2021-04-08] MEDS: HYDROcodone-ACET 5/325MG TAB PO PRN (05:10)
[2021-04-08 05:42] LABS: Basophils # (auto) 0.1 10 ^3/uL (0-0.2); Basophils % (auto) 0.7 % (0.0-2.0); Eosinophils # (auto) 0.3 10 ^3/uL (0-0.8); Eosinophils % (auto) 3.6 % (0.0-7.0); Hematocrit 44.2 % (41.0-53.0); Hemoglobin 14.8 g/dL (13.5-17.5); Lymphocytes # (auto) 1.2 10 ^3/uL (0.4-5.4); Lymphocytes % (auto) 15.5 % (10.0-50.0); Mean Corpuscular Hemoglobin 30.1 pg (28.0-32.0); Mean Corpuscular Hgb Conc. 33.4 g/dL (32.0-36.0); Monocytes # (auto) 0.9 10 ^3/uL (0-1.3); Monocytes % (auto) 12.4 % (0.0-12.0); Neutrophils # (auto) 5.1 10 ^3/uL (1.6-8.6); Neutrophils % (auto) 67.8 % (37.0-80.0); Red Blood Cells 4.92 10^6/uL (4.5-5.90); Red Cell Distribution Width 14.3 % (11.8-14.3); White Blood Cell 7.5 10^3/uL (4.4-10.8)
[2021-04-08 05:54] LABS: INR 2.51 (0.9-1.15)
[2021-04-08 06:28] LABS: Potassium 4.3 mmol/L (3.5-5.1)
[2021-04-08] MEDS: ACCU-CHEK COMFORT CURVE STRIP VI SCH ×5 (06:38→22:56)
[2021-04-08] MEDS: InsuLIN REG 1unit/0.01ml Soln (100units/ml) SC SCH ×4 (06:38→22:00)
[2021-04-08 06:40] LABS: BUN/Creatinine Ratio 34.6; Calcium 8.3 mg/dL (8.5-10.1)
[2021-04-08 08:05] VITALS: BP 99/61
[2021-04-08] MEDS ORDERED: MIDAZOLAM HCL 2MG/2ML 2ml VIAL (1mg/ml) IM ONE (09:00)
[2021-04-08] MEDS ORDERED: diphenhdrAMINE HCL 50 MG/1 ML VL IV ONE (09:00)
[2021-04-08] MEDS ORDERED: LIDOCAINE VISCOUS 2% 15ML UD PO ONE (09:00)
[2021-04-08] MEDS ORDERED: FAMOTIDINE (10MG/ML) 2ML VL IV ONE (09:00)
[2021-04-08] MEDS ORDERED: fentaNYL CITRATE 100 MCG/2 ML VL IV ONE (09:00)
[2021-04-08] MEDS: LORazepam 2MG/ML-1ML VIAL IV PRN ×2 (09:21→17:43)
[2021-04-08] MEDS: POLYETHYLENE GLYCOL 17 GM PWDR PO SCH (10:00)
[2021-04-08] MEDS: SACUBITRIL-VALSARTAN 24mg/26mg TAB PO SCH ×2 (10:00→22:46)
[2021-04-08] MEDS: CARVEDILOL 3.125 MG TAB PO SCH ×2 (10:00→22:00)
[2021-04-08] MEDS ORDERED: FUROSEMIDE 40 MG/4 ML VIAL IV SCH (10:00)
[2021-04-08] MEDS: LEVOTHYROXINE SODIUM 100 MCG/5 ML INJ IV SCH (10:00)
[2021-04-08] MEDS: MORPHINE SULFATE INJECTION 2 MG/ML SYRG IV PRN ×2 (12:51→22:57)
[2021-04-08 13:00] VITALS: BP 96/56
[2021-04-08] MEDS: SODIUM CHLOR 0.9% PF (SALINE LOCK) 10ML VIAL/SYR IV SCH ×2 (15:34→22:55)
[2021-04-08 17:00] VITALS: BP 113/62
[2021-04-08] MEDS ORDERED: WARFARIN SODIUM 2 MG TAB PO ONE (17:00)
[2021-04-08 22:00] VITALS: BP 101/64
[2021-04-08] MEDS: cefTRIAXone 1GM/50ML D5W 50 ML IV SCH ×2 (22:46→22:55)
[2021-04-09] MEDS: MORPHINE SULFATE INJECTION 2 MG/ML SYRG IV PRN ×3 (03:14→23:29)
[2021-04-09 05:00] VITALS: BP 91/56
[2021-04-09] MEDS: SODIUM CHLOR 0.9% PF (SALINE LOCK) 10ML VIAL/SYR IV SCH ×3 (05:44→23:33)
[2021-04-09] MEDS: InsuLIN REG 1unit/0.01ml Soln (100units/ml) SC SCH ×4 (06:31→23:44)
[2021-04-09 09:00] VITALS: BP 101/63
[2021-04-09] MEDS: CARVEDILOL 3.125 MG TAB PO SCH ×2 (10:00→22:00)
[2021-04-09] MEDS: POLYETHYLENE GLYCOL 17 GM PWDR PO SCH (10:00)
[2021-04-09] MEDS: SACUBITRIL-VALSARTAN 24mg/26mg TAB PO SCH ×2 (10:00→23:39)
[2021-04-09] MEDS: ACCU-CHEK COMFORT CURVE STRIP VI SCH ×3 (11:30→23:39)
[2021-04-09] MEDS ORDERED: FUROSEMIDE 40 MG TAB PO ONE (12:00)
[2021-04-09 13:00] VITALS: BP 97/54
[2021-04-09 15:03] LABS: INR 1.89 (0.9-1.15)
[2021-04-09] MEDS: LEVOTHYROXINE SODIUM 100 MCG/5 ML INJ IV SCH (15:30)
[2021-04-09 17:00] VITALS: BP 90/48
[2021-04-09] MEDS ORDERED: WARFARIN SODIUM 2 MG TAB PO ONE (17:00)
[2021-04-09 22:00] VITALS: BP 104/68
[2021-04-09] MEDS: cefTRIAXone 1GM/50ML D5W 50 ML IV SCH (23:47)
[2021-04-10 05:25] VITALS: BP 102/61
[2021-04-10] MEDS: SODIUM CHLOR 0.9% PF (SALINE LOCK) 10ML VIAL/SYR IV SCH ×3 (06:08→23:49)
[2021-04-10] MEDS: ACCU-CHEK COMFORT CURVE STRIP VI SCH ×4 (06:44→22:55)
[2021-04-10 06:51] LABS: Basophils # (auto) 0 10 ^3/uL (0-0.2); Basophils % (auto) 0.7 % (0.0-2.0); Eosinophils # (auto) 0.2 10 ^3/uL (0-0.8); Eosinophils % (auto) 4.6 % (0.0-7.0); Hemoglobin 13.8 g/dL (13.5-17.5); Lymphocytes # (auto) 1.1 10 ^3/uL (0.4-5.4); Lymphocytes % (auto) 20.3 % (10.0-50.0); Mean Corpuscular Hemoglobin 29.9 pg (28.0-32.0); Mean Corpuscular Volume 90.7 fL (80.0-100.0); Monocytes # (auto) 0.7 10 ^3/uL (0-1.3); Monocytes % (auto) 12.8 % (0.0-12.0); Neutrophils # (auto) 3.3 10 ^3/uL (1.6-8.6); Neutrophils % (auto) 61.6 % (37.0-80.0); Nucleated Red Blood Cells % 0.1 %; Red Blood Cells 4.63 10^6/uL (4.5-5.90); Red Cell Distribution Width 14.6 % (11.8-14.3); White Blood Cell 5.4 10^3/uL (4.4-10.8)
[2021-04-10 07:02] LABS: INR 1.73 (0.9-1.15)
[2021-04-10 07:06] LABS: Potassium 4.4 mmol/L (3.5-5.1)
[2021-04-10] MEDS: InsuLIN REG 1unit/0.01ml Soln (100units/ml) SC SCH ×4 (07:09→23:47)
[2021-04-10 07:26] LABS: Albumin 2.4 g/dL (3.4-5.0); BUN/Creatinine Ratio 53.1; Bilirubin, Total 0.8 mg/dL (0.2-1.0); Calcium 8.3 mg/dL (8.5-10.1); Total Protein 5.9 g/dL (6.4-8.2)
[2021-04-10 09:00] VITALS: BP 88/43
[2021-04-10] MEDS: CARVEDILOL 3.125 MG TAB PO SCH ×2 (10:00→22:00)
[2021-04-10] MEDS: FUROSEMIDE 40 MG TAB PO SCH (10:00)
[2021-04-10] MEDS: LEVOTHYROXINE SODIUM 100 MCG/5 ML INJ IV SCH (11:09)
[2021-04-10] MEDS: POLYETHYLENE GLYCOL 17 GM PWDR PO SCH (11:11)
[2021-04-10] MEDS: LORazepam 2MG/ML-1ML VIAL IV PRN ×2 (11:12→19:06)
[2021-04-10 13:00] VITALS: BP 109/71
[2021-04-10] MEDS: SACUBITRIL-VALSARTAN 24mg/26mg TAB PO SCH ×2 (16:00→23:49)
[2021-04-10 17:00] VITALS: BP 128/75
[2021-04-10] MEDS ORDERED: WARFARIN SODIUM 2 MG TAB PO ONE (17:00)
[2021-04-10 22:00] VITALS: BP 83/48
[2021-04-10] MEDS: HALOPERIDOL LACTATE 5 MG/ML INJ VIAL IM PRN (23:11)
[2021-04-11] MEDS: LORazepam 2MG/ML-1ML VIAL IV PRN ×2 (03:58→14:51)
[2021-04-11 05:00] VITALS: BP 119/54
[2021-04-11] MEDS: SODIUM CHLOR 0.9% PF (SALINE LOCK) 10ML VIAL/SYR IV SCH ×2 (06:41→14:00)
[2021-04-11] MEDS: ACCU-CHEK COMFORT CURVE STRIP VI SCH ×3 (06:42→18:09)
[2021-04-11] MEDS: InsuLIN REG 1unit/0.01ml Soln (100units/ml) SC SCH ×3 (06:47→18:09)
[2021-04-11 06:48] LABS: Basophils # (auto) 0 10 ^3/uL (0-0.2); Basophils % (auto) 0.9 % (0.0-2.0); Eosinophils # (auto) 0.3 10 ^3/uL (0-0.8); Eosinophils % (auto) 5.3 % (0.0-7.0); Hematocrit 41.2 % (41.0-53.0); Hemoglobin 13.7 g/dL (13.5-17.5); Lymphocytes # (auto) 1.2 10 ^3/uL (0.4-5.4); Lymphocytes % (auto) 24.5 % (10.0-50.0); Mean Corpuscular Hemoglobin 29.9 pg (28.0-32.0); Mean Corpuscular Hgb Conc. 33.2 g/dL (32.0-36.0); Mean Corpuscular Volume 90.2 fL (80.0-100.0); Monocytes # (auto) 0.6 10 ^3/uL (0-1.3); Monocytes % (auto) 12.2 % (0.0-12.0); Neutrophils # (auto) 2.8 10 ^3/uL (1.6-8.6); Neutrophils % (auto) 57.1 % (37.0-80.0); Nucleated Red Blood Cells % 0.1 %; Red Blood Cells 4.57 10^6/uL (4.5-5.90); Red Cell Distribution Width 14.8 % (11.8-14.3)
[2021-04-11 07:06] LABS: INR 1.77 (0.9-1.15)
[2021-04-11 09:00] VITALS: BP 128/72
[2021-04-11] MEDS: LEVOTHYROXINE SODIUM 100 MCG/5 ML INJ IV SCH (10:32)
[2021-04-11] MEDS: MORPHINE SULFATE INJECTION 2 MG/ML SYRG IV PRN (10:33)
[2021-04-11] MEDS: POLYETHYLENE GLYCOL 17 GM PWDR PO SCH (10:33)
[2021-04-11] MEDS: FUROSEMIDE 40 MG TAB PO SCH (10:33)
[2021-04-11] MEDS: CARVEDILOL 3.125 MG TAB PO SCH (10:33)
[2021-04-11] MEDS: SACUBITRIL-VALSARTAN 24mg/26mg TAB PO SCH (10:33)
[2021-04-11 12:15] LABS: Hepatitis A Ab IgM Negative; Hepatitis A Total Antibody Negative; Hepatitis B Core IgM Negative; Hepatitis B Surface Antibody Negative; Hepatitis B Surface Antigen Negative (Negative); Hepatitis C Antibody Negative (Negative)
[2021-04-11] MEDS ORDERED: LEVO137T3 PO (12:23)
[2021-04-11] MEDS ORDERED: ERGO1CAP23 PO (12:23)
[2021-04-11 13:00] VITALS: BP 90/60
[2021-04-11 14:37] LABS: Hepatitis B Core Total AB Negative
[2021-04-11 17:00] VITALS: BP 96/66
[2021-04-11] MEDS ORDERED: WARFARIN SODIUM 5 MG TAB PO ONE (17:00)
[2021-04-11 19:44] VITALS: BP 96/66
== END 2021-04-11 21:53 | disposition home health service (06) | DRG 70 ==
LOC: EDBD 23:41 → ER 23:43 → TELE 04-05 08:51 → TELE-WESTW 04-05 21:49
PROVIDERS: ADMIT Nurse Practitioner Acute Care; ATTEND Internal Medicine
PROC: B246ZZ4 Ultrasonography of Right and Left Heart, Transesophageal (ICD-10-PCS; principal; 2021-04-05)
DX: G93.41 Metabolic encephalopathy (principal); J96.01 Acute respiratory failure with hypoxia; I50.23 Acute on chronic systolic (congestive) heart failure; I13.0 Hypertensive heart and chronic kidney disease with heart failure and stage 1 through stage 4 chronic kidney disease, or unspecified chronic kidney disease; D68.9 Coagulation defect, unspecified; N39.0 Urinary tract infection, site not specified; L03.115 Cellulitis of right lower limb; Z20.822 Contact with and (suspected) exposure to COVID-19; R62.7 Adult failure to thrive; E11.42 Type 2 diabetes mellitus with diabetic polyneuropathy; E03.9 Hypothyroidism, unspecified; E78.5 Hyperlipidemia, unspecified; E66.01 Morbid (severe) obesity due to excess calories; F41.9 Anxiety disorder, unspecified; H54.7 Unspecified visual loss; R29.6 Repeated falls; I07.1 Rheumatic tricuspid insufficiency; J32.9 Chronic sinusitis, unspecified; R79.89 Other specified abnormal findings of blood chemistry; N18.30 Chronic kidney disease, stage 3 unspecified; R74.8 Abnormal levels of other serum enzymes; I35.0 Nonrheumatic aortic (valve) stenosis; Z86.73 Personal history of transient ischemic attack (TIA), and cerebral infarction without residual deficits; Z79.01 Long term (current) use of anticoagulants; Z79.84 Long term (current) use of oral hypoglycemic drugs; Z79.899 Other long term (current) drug therapy; Z82.49 Family history of ischemic heart disease and other diseases of the circulatory system; Z83.3 Family history of diabetes mellitus; Z86.718 Personal history of other venous thrombosis and embolism; Z95.828 Presence of other vascular implants and grafts
CPT/HCPCS: 36415; 36600; 70450; 70551; 71045; 72131; 74177; 76705; 80048; 80053; 80061; 80074; 80307; 81001; 82140; 82150; 82306; 82607; 82746; 82805; 82962; 83036; 83690; 83735; 83880; 84155; 84165; 84439; 84443; 84484; 85025; 85379; 85610; 85730; 86704; 86706; 86708; 86803; 87040; 87077; 87086; 87088; 87186; 87205; 87340; 87426; 93005; 93306; 93312; 93886; 95819; 96374; 97116; 97163; 97530; 99152; G0378; J0696; J1815; J2250; J2405; J3490

== ENCOUNTER 2021-04-12 00:05 | Emergency (ER) | payer MEDICARE ==
[~2021-04-12] VITALS: Ht 180.3 cm; Wt 145.1 kg
[~2021-04-12 00:05] MED LIST changes: +ALBUAER3 IN; -ATOR10TA PO; +BUSP5TAB51 PO; +ERGO1CAP23 PO; -FURO1TAB31 PO; +FURO20TA3 PO; +HYDR50TA69 PO; -LEV50T PO; +LEVO137T3 PO; +LISI-716 PO; -LISI2.5T47 PO; +METF-371 PO; +SERT50TA19 PO
[2021-04-12 01:34] LABS: Basophils # (auto) 0 10 ^3/uL (0-0.2); Basophils % (auto) 0.4 % (0.0-2.0); Eosinophils # (auto) 0.2 10 ^3/uL (0-0.8); Eosinophils % (auto) 2.1 % (0.0-7.0); Hematocrit 43.1 % (41.0-53.0); Hemoglobin 14.3 g/dL (13.5-17.5); Lymphocytes # (auto) 0.9 10 ^3/uL (0.4-5.4); Lymphocytes % (auto) 11.6 % (10.0-50.0); Mean Corpuscular Hemoglobin 30.1 pg (28.0-32.0); Mean Corpuscular Hgb Conc. 33.2 g/dL (32.0-36.0); Mean Corpuscular Volume 90.6 fL (80.0-100.0); Monocytes # (auto) 0.6 10 ^3/uL (0-1.3); Monocytes % (auto) 8.1 % (0.0-12.0); Neutrophils % (auto) 77.8 % (37.0-80.0); Nucleated Red Blood Cells % 0.1 %; Red Blood Cells 4.75 10^6/uL (4.5-5.90); Red Cell Distribution Width 14.7 % (11.8-14.3); White Blood Cell 7.8 10^3/uL (4.4-10.8)
[2021-04-12 01:39] LABS: INR 1.96 (0.9-1.15)
[2021-04-12 01:43] LABS: Albumin 2.6 g/dL (3.4-5.0); BUN/Creatinine Ratio 32.1; Calcium 8.2 mg/dL (8.5-10.1); Potassium 4.5 mmol/L (3.5-5.1)
[2021-04-12 01:48] LABS: Total Protein 6.3 g/dL (6.4-8.2)
[2021-04-12] MEDS ORDERED: ACETAMINOPHEN 325 MG TAB PO ONE (05:45)
[2021-04-12 14:47] VITALS: BP 122/82
== END 2021-04-12 14:48 | disposition home or self-care (01) ==
LOC: EDBD 00:05 → ER 00:07
DX: R53.1 Weakness (principal); I11.0 Hypertensive heart disease with heart failure; I50.9 Heart failure, unspecified; E11.9 Type 2 diabetes mellitus without complications; Z86.73 Personal history of transient ischemic attack (TIA), and cerebral infarction without residual deficits; Z79.899 Other long term (current) drug therapy; Z79.01 Long term (current) use of anticoagulants; Z20.822 Contact with and (suspected) exposure to COVID-19
CPT/HCPCS: 36415; 71045; 80053; 83605; 83735; 83880; 84484; 85025; 85610; 87426; 93005